=== PATIENT | male | born 1960 | race Caucasian/White ===

== ENCOUNTER → 2017-12-23 | Outpatient (CLI) | payer BC ==
--- NOTE | 2017-12-23 09:37 | CT ---
EXAMINATION TYPE: CT brain wo con DATE OF EXAM: 12/23/2017 COMPARISON: NONE HISTORY: Patient complains of chronic headaches. CT DLP: 1141 mGycm Automated exposure control for dose reduction was used. Helical acquisition through the brain FINDINGS: There is no hemorrhage or hydrocephalus. Calvarium is intact. Paranasal sinuses and mastoid air cells as visualized are normal. Brain density is remarkable for some periventricular white matter low-atte nuation. There is cortical atrophy. IMPRESSION: NO ACUTE ABNORMALITY. FINDINGS SUGGEST AGE-RELATED ATROPHY AND POSSIBLE CHRONIC SMALL VESSEL ISCHEMIA , BRAIN MRI MAY BE OF BENEFIT.
== END | disposition home or self-care (01) ==
LOC: RADCTMAIN 07:59
PROVIDERS: ATTEND Family Medicine
DX: G44.89 Other headache syndrome (principal)
CPT/HCPCS: 70450

== ENCOUNTER → 2020-03-20 | Outpatient (CLI) | payer BC ==
--- NOTE | 2020-03-20 10:40 | CT ---
EXAMINATION TYPE: CT abdomen pelvis wo con DATE OF EXAM: 03/20/2020 COMPARISON: 08/06/2015 HISTORY: Left sided flank pain. CT DLP: 1193.4 mGycm Examination of the solid and hollow viscera is limited given the lack of contrast. FINDINGS: LUNG BASES: No evidence for nodule. No evidence for infiltrate. LIVER/GB: Mild fatty liver. There is evidence of cholelithiasis. Hepatic cyst noted unchanged from pr ior study. No space-occupying hepatic lesion. PANCREAS: No pancreatic mass identified. No inflammatory process seen. SPLEEN: No evidence for splenomegaly. No intrasplenic lesions seen. ADRENALS: No adrenal nodules identified. No evidence for thickening. KIDNEYS: There is a distal right ureteral bilobed calculus or 2 adjacent calculi noted measuring tota l craniocaudal measurement of 2.3 cm with greatest transverse measurement of 9 mm. The calcifications reside 2.8 cm from the right UVJ. There is severe right-sided hydroureteronephrosis. 2 mm nonobstruc ting left renal calculus identified. BOWEL: Appendix has a normal appearance. No evidence of bowel obstruction. No inflammatory process. Lymph nodes: No evidence for adenopathy greater than 1 cm. Abdominal aorta: Atheromatous changes seen. No evidence for aneurysm. Genital organs: No significant abnormality. Other: No significant abnormality. IMPRESSION: There is a distal right ureteral bilobed calculus or 2 adjacent calculi noted measuring total cranioc audal measurement of 2.3 cm with greatest transverse measurement of 9 mm. The calcifications reside 2 .8 cm from the right UVJ. There is severe right-sided hydroureteronephrosis.
== END | disposition home or self-care (01) ==
LOC: RADCTMAIN 10:00
PROVIDERS: ATTEND Family Medicine
DX: R10.9 Unspecified abdominal pain (principal); N13.2 Hydronephrosis with renal and ureteral calculous obstruction
CPT/HCPCS: 74176

== ENCOUNTER → 2021-02-19 | Outpatient (CLI) | payer BC ==
--- NOTE | 2021-02-19 16:01 | CT ---
EXAMINATION TYPE: CT abdomen pelvis wo con DATE OF EXAM: 02/19/2021 COMPARISON: 03/20/2020 HISTORY: renal stone, bilateral flank pain CT DLP: 1083 mGycm Examination of the solid and hollow viscera is limited given the lack of contrast. FINDINGS: LUNG BASES: No evidence for nodule. No evidence for infiltrate. LIVER/GB: Hepatic steatosis. Cholelithiasis noted. Cystic lesion near the dome of the liver measuring 2.5 cm. No space-occupying hepatic lesion. PANCREAS: No pancreatic mass identified. No inflammatory process seen. SPLEEN: No evidence for splenomegaly. Splenic lesion is nonspecific measuring 1.9 cm and may reflect a cyst or hemangioma. ADRENALS: No adrenal nodules identified. No evidence for thickening. KIDNEYS: There is a large calculus within the prostatic urethra measuring approximately 9.5 mm in tra nsverse dimension and is felt to reflect a calculus of similar size seen on prior examination within the distal right ureter. 4 mm calculus distal right ureter without evidence for hydronephrosis. No re nal calculi seen. BOWEL: Appendix has a normal appearance. No evidence of bowel obstruction. No inflammatory process. Lymph nodes: No evidence for adenopathy greater than 1 cm. Abdominal aorta: Atheromatous changes seen. No evidence for aneurysm. Genital organs: No significant abnormality. Other: No significant abnormality. IMPRESSION: 1.There is a large calculus within the prostatic urethra measuring approximately 9.5 mm in transverse dimension and is felt to reflect a calculus of similar size seen on prior examination within the dis eli right ureter. 2. Nonobstructing 4 mm calculus distal right ureter.
== END | disposition home or self-care (01) ==
LOC: RADCTMAIN 15:23
PROVIDERS: ATTEND Urology
DX: N20.1 Calculus of ureter (principal)
CPT/HCPCS: 74176

== ENCOUNTER 2021-02-23 13:51 | Day surgery (SDC) | payer BC ==
[2021-02-20 08:47] VITALS: BMI 29.2
--- NOTE | 2021-02-22 13:35 | P.GSHP ---
History of Present Illness H&P Date: 02/22/21 Chief Complaint: Difficulty voiding, penile pain The patient is a 60-year-old male with a history of urolithiasis. A CT scan in February 2020 showed severe right hydronephrosis secondary to a 9 x 28 mm right distal ureteral calculus. The calculus appeared to have a dumbbell shape, though it may have been 2 calculi immediately adjacent to one another. He now presents with mild left flank discomfort, penile and prostatic pain, and difficulty voiding. CT scan shows a 4 mm right distal ureteral calculus, with no evidence of residual hydronephrosis. Additionally, a 9.5 cm calculus is seen within the prostatic urethra. - Constitutional Constitutional: Denies chills, Denies fever - Gastrointestinal Gastrointestinal: Denies nausea, Denies vomiting - Genitourinary (Male) Genitourinary: Reports as per HPI, Denies hematuria Past Medical History Past Medical History: Cancer, GERD/Reflux, Hypertension Additional Past Medical History / Comment(s): rt kidney stones,hx heart palpatations,borderline Neves's esophagitis,steroid injections kera knees January 12, 2021,skin CA-Kyler's procedures in office History of Any Multi-Drug Resistant Organisms: None Reported Additional Past Surgical History / Comment(s): partial rt testicle removed,colonoscopies Past Anesthesia/Blood Transfusion Reactions: No Reported Reaction Smoking Status: Current every day smoker - Past Family History Mother Family Medical History: Cancer Additional Family Medical History / Comment(s): brain Sister(s) Family Medical History: Cancer Additional Family Medical History / Comment(s): breast Father Family Medical History: Coronary Artery Disease (CAD) Additional Family Medical History / Comment(s): heart problems Medications and Allergies Home Medications Medication Instructions Recorded Confirmed Type Cyclobenzaprine [Flexeril] 10 mg PO TID PRN 02/20/21 02/20/21 History Ibuprofen [Motrin] 600 mg PO Q6HR PRN 02/20/21 02/20/21 History Krill Oil 500 mg PO HS 02/20/21 02/20/21 History Omeprazole 40 mg PO HS 02/20/21 02/20/21 History Tamsulosin HCl [Flomax] 0.4 mg PO HS 02/20/21 02/20/21 History Venlafaxine HCl ER [Effexor Xr] 150 mg PO QAM 02/20/21 02/20/21 History atenoloL [Atenolol] 100 mg PO QAM 02/20/21 02/20/21 History hydroCHLOROthiazide 25 mg PO QAM 02/20/21 02/20/21 History Allergies Allergy/AdvReac Type Severity Reaction Status Date / Time No Known Allergies Allergy Verified 02/20/21 08:33 Surgical - Exam - General well developed, well nourished, no distress - Neck no masses, trachea midline - Respiratory normal respiratory effort, clear to auscultation - Cardiovascular Rhythm: regular Abnormal Heart Sounds: no systolic murmur, no diastolic murmur, no rub, no S3 Gallop, no S4 Gallop, no click, no other - Abdomen Abdomen: soft, non tender, no guarding, no rigid, no rebound - Genitourinary normal penis with no external lesions right: testicle absent - Rectum Rectum: normal sphincter tone, no masses - Psychiatric oriented to time, oriented to person, oriented to place, speech is normal, memory intact Results - Imaging CT scan - abdomen: report reviewed, image reviewed Assessment and Plan (1) Calculus in urethra Status: Acute Code(s): N21.1 - CALCULUS IN URETHRA SNOMED Code(s): 78422639 (2) Calculus of ureter Status: Acute Code(s): N20.1 - CALCULUS OF URETER SNOMED Code(s): 51164698 Plan: Cystoscopy, cystolithotripsy, right retrograde pyelogram, right ureteroscopy with Holmium laser lithotripsy, right ureteral stent insertion. The procedure has been reviewed in detail with the patient and his . The rationale for the procedure was discussed, as were potential risks. These include anesthesia, bleeding, infection, inability to successfully remove the calculi, and ureteral injury. He is aware that a ureteral stent will be placed and left in place 1-2 weeks postoperatively.
[~2021-02-23 13:51] MED LIST: DEXAMETHASONE SOD PHOSPHATE 4 MG/ML 1 ML VIAL IV ONE; HYDROmorphone 0.5 MG/0.5 ML SYRINGE IVP PRN; LACTATED RINGERS 1,000 ML IV SCH; LIDOCAINE 1% (10MG/ML) FOR IV START INTRADERMA PRN; ONDANSETRON 4 MG/2 ML VIAL IVP ONE; SCOPOLAMINE 1.5MG/72HR PATCH TRANSDERM ONE
[2021-02-23 14:31] VITALS: RESP 16
[2021-02-23 14:52] LABS: Basophils # (A) 0.1 k/uL (0-0.2); Basophils % (A) 1 %; Eosinophils # (A) 0.3 k/uL (0-0.7); Eosinophils % (A) 3 %; HCT 46.3 % (39.0-53.0); HGB 16.7 gm/dL (13.0-17.5); Lymphocytes # (A) 2.4 k/uL (1.0-4.8); Lymphocytes % (A) 25 %; MCH 31.1 pg (25.0-35.0); MCHC 36.1 g/dL (31.0-37.0); MCV 86.3 fL (80.0-100.0); Mean Platelet Volume 6.6; Monocytes # (A) 0.6 k/uL (0-1.0); Monocytes % (A) 6 %; Neutrophils % (A) 63 %; Platelet Count 275 k/uL (150-450); RBC 5.37 m/uL (4.30-5.90); WBC 9.4 k/uL (3.8-10.6)
[2021-02-23 15:02] LABS: Calcium 9.6 mg/dL (8.4-10.2); Potassium 3.7 mmol/L (3.5-5.1)
[2021-02-23] MEDS ORDERED: ePHEDrine SULFATE/0.9% NACL/PF 50 MG/5 ML SYRINGE IV ONE (16:45)
[2021-02-23] MEDS ORDERED: ROCURONIUM 10 MG/ML (5 ML VIAL) IV ONE (16:45)
[2021-02-23] MEDS ORDERED: MIDAZOLAM 2 MG/2 ML VIAL ONE (16:45)
[2021-02-23] MEDS ORDERED: LIDOCAINE 1% INJ 10MG/ML (20 ML MDV) ONE (16:45)
[2021-02-23] MEDS ORDERED: NEOSTIGMINE 1 MG/ML 10 ML VIAL ONE (16:45)
[2021-02-23] MEDS ORDERED: PROPOFOL 10 MG/ML 20 ML VIAL IV ONE (16:45)
[2021-02-23] MEDS ORDERED: GLYCOPYRROLATE 0.2 MG/ML 2 ML VIAL ONE (16:45)
[2021-02-23] MEDS ORDERED: KETOROLAC 15 MG/ML 1 ML VIAL ONE (16:45)
[2021-02-23] MEDS ORDERED: SUCCINYLCHOLINE CHLORIDE 100 MG/5 ML SYR IV ONE (16:45)
[2021-02-23] MEDS ORDERED: fentaNYL (PF) 50 MCG/ML 2 ML AMP ONE (16:45)
[2021-02-23] MEDS ORDERED: LACTATED RINGERS 1,000 ML IV ONE (17:45)
[2021-02-23 18:52] VITALS: TEMP 96.8
--- NOTE | 2021-02-23 18:52 | P.OP ---
Date of Procedure: 02/23/21 Preoperative Diagnosis: Bladder calculus, right ureteral calculus Postoperative Diagnosis: Same Procedure(s) Performed: Cystoscopy, cystolithotripsy, right ureteroscopy with Holmium laser lithotripsy and stone basketing, right ureteral stent insertion Anesthesia: MIAN Surgeon: Riccardo Berry Estimated Blood Loss (ml): 10 IV fluids (ml): 500 Pathology: other (Calculus fragments, sent for chemical analysis) Condition: stable Disposition: PACU Indications for Procedure: The patient is a 60-year-old male with a history of urolithiasis. A CT scan in February 2020 showed severe right hydronephrosis secondary to a 9 x 28 mm right distal ureteral calculus. The calculus appeared to have a dumbbell shape, though it may have been 2 calculi immediately adjacent to one another. He now presents with mild left flank discomfort, penile and prostatic pain, and dif ficulty voiding. CT scan shows a 4 mm right distal ureteral calculus, with no evidence of residual hydronephrosis. Additionally, a 9.5 cm calculus is seen within the prostatic urethra. Operative Findings: Bladder calculus, right distal ureteral calculus. Both fragmented and removed completely. Description of Procedure: The patient was taken to the operating room and placed in the dorsolithotomy position, with legs supported in Johny stirrups. The external genitalia was prepped and draped sterilely. The 30 lens was used to introduce the 21-Wallisian Ricardo cystoscopic sheath through the urethra. The bulbous urethra was somewhat narrowed in caliber, and therefore [place] sounds were used to dilate the urethra and allow the cystoscope to be advanced into the bladder under direct vision. The prostatic urethra showed evidence of mild lateral lobe enlargement. The bladder was examined in its entirety. Both ureteral orifices were normal anatomic location and configuration, and clear urine effluxed from both. A calculus was seen within the bladder, measuring approximately 1.5 cm in size. The 1000 holmium laser probe was passed through the cystoscope, and lithotripsy was performed. After fragmenting the calculus, all calculus fragments were removed from the bladder through the cystoscope. There was no evidence of bladder trauma. The cystoscope was removed. The Ricardo semirigid ureteroscope was advanced into the bladder, and the right ureteral orifice was cannulated. the ureteroscope was advanced up to the calculus. The 272 micron Holmium laser probe was passed through the ureteroscope, and lithotripsy was performed utilizing a dusting mode with virtual basket. After fragmenting much of the calculus, it was apparent that it was impacted and that a portion of the calculus was adherent to the ureteral mucosa. This was gently pried away from the mucosa prior to fragmenting. After much of the calculus had been fragmented, a portion of the calculus refluxed above the iliac vessels. The semirigid ureteroscope could not be advanced beyond this point. A 1.9-Wallisian nitinol basket was used to remove calculus fragments from the distal ureter. A 0.035 inch Glidewire was passed through the ureteroscope, which was removed. The [employer] flexible ureteroscope was passed over the wire, but could not be passed through the right ureteral orifice. Therefore, an 11/13-Wallisian ureteral access catheter was passed over the wire, thus dilating the ureteral orifice. It was then possible to pass the flexible ureteroscope over the wire, up to the calculus. Slight narrowing of the ureter was noted where the stone had been impacted, so the Glidewire was passed through the ureteroscope which was gently advanced over the wire. The ureteroscope was then advanced under direct vision up to the kidney. Each calyx was examined. No calculi were seen within the calyces or the renal pelvis. The flexible ureteroscope was slowly withdrawn. The calculus fragment was seen within the mid ureter, and this was removed via Stone basketing. Pullout ureteroscopy was then performed, showing no residual ureteral calculi and no evidence of ureteral perforation. The ureteroscope was removed, and the cystoscope was replaced into the bladder. The Glidewire was passed up to the right renal pelvis, and a 28 cm, 6-Wallisian double-J ureteral stent was placed over the wire. Proper stent positioning was verified fluoroscopically and endoscopically. The bladder was emptied and the cystoscope removed. The patient tolerated the procedure well and was taken to the recovery room in stable condition. [employer] Report: Procedure Acuity: Semi-Urgent Stone Size and Location: 1.5 cm bladder calculus, 7 mm right distal ureteral calculus. Ureteral Dilation: No Ureteral Access Sheath Used: Yes Stone Sent for Analysis: Yes All Stones/Fragments Were Removed with a Basket: Yes Complications: No Preoperative Antibiotics Given: Yes Stent Placed: Yes If Stent Placed, Was String Left Attached: No If Stent Placed, When is it to be Removed: 2 weeks Discharge Medications: Toradol, tamsulosin
[2021-02-23 19:27] VITALS: BP 148/86; PULSE 56
--- NOTE | 2021-02-24 08:06 | FL ---
EXAMINATION TYPE: FL guidance operating room DATE OF EXAM: 02/23/2021 HISTORY: Fluoroscopy time 24 seconds of fluoroscopy provided. IMPRESSION: 1. Fluoroscopy time.
--- NOTE | 2021-02-24 08:39 | XR ---
EXAMINATION TYPE: XR KUB DATE OF EXAM: 02/23/2021 2:05 PM CLINICAL HISTORY: History of right-sided kidney stones. TECHNIQUE: Two supine KUB images of the abdomen are obtained. COMPARISON: CT abdomen and pelvis 4 days ago. FINDINGS: Stable roughly 8 mm distal right ureter calculus projecting over the lateral aspect of the right mid sacrum. There is prostate calcification projecting over the right aspect of coccyx. There a re left-sided pelvic phleboliths. Overall nonobstructive bowel gas pattern. Visualized lung bases are clear. IMPRESSION: Stable 8 mm distal right ureter calculus.
== END 2021-02-23 19:42 | disposition home or self-care (01) ==
LOC: OR 13:51
PROVIDERS: ATTEND Urology
DX: N13.2 Hydronephrosis with renal and ureteral calculous obstruction (principal); N21.0 Calculus in bladder; K21.9 Gastro-esophageal reflux disease without esophagitis; I10 Essential (primary) hypertension; Z87.442 Personal history of urinary calculi; K22.70 Barrett's esophagus without dysplasia; Z85.828 Personal history of other malignant neoplasm of skin; Z80.8 Family history of malignant neoplasm of other organs or systems; Z80.3 Family history of malignant neoplasm of breast; Z82.49 Family history of ischemic heart disease and other diseases of the circulatory system; Z79.899 Other long term (current) drug therapy; Z87.891 Personal history of nicotine dependence
CPT/HCPCS: 80048; 85025; 82365; 74018; 52356; C2625; C1758; C1769; J2250; J1100; J2710; J0690; J2405; J2001; J3010; J1885; J0330; J2704

== ENCOUNTER → 2021-04-24 | Outpatient (CLI) | payer BC ==
--- NOTE | 2021-04-24 10:06 | US ---
EXAMINATION TYPE: US kidneys/renal and bladder DATE OF EXAM: 04/24/2021 COMPARISON: CT 02/19/2021, 03/20/2020, 08/06/2015 CLINICAL HISTORY: N20.1 Calculus of ureter. EXAM MEASUREMENTS: Right Kidney: 11.6 x 5.3 x 6.7 cm Left Kidney: 12.1 x 5.6 x 6.3 cm Right Kidney: minimal hydronephrosis noted lower pole. Left Kidney: Hypoechoic/anechoic lower/lateral measures 2.7 x 2.5 x 2.5 cm Bladder: wnl Bilateral Jets seen: No There is no evidence for hydronephrosis at this point in time. No nephrolithiasis is seen. No polly s are identified. The urinary bladder is anechoic. IMPRESSION: Left renal anechoic lesion most likely represents a cyst. Further evaluation with MRI abdomen with an d without contrast could be performed if necessary otherwise, ultrasound follow-up is recommended.
== END | disposition home or self-care (01) ==
LOC: RADUSWWP 09:39
PROVIDERS: ATTEND Urology
DX: N13.2 Hydronephrosis with renal and ureteral calculous obstruction (principal)
CPT/HCPCS: 76770

== ENCOUNTER → 2024-08-10 | Outpatient (CLI) | payer BC ==
--- NOTE | 2024-08-10 09:11 | XR ---
EXAMINATION TYPE: XR chest 2V DATE OF EXAM: 08/10/2024 COMPARISON: None HISTORY: 63-year-old male D41.02 NEOPLASM OF UNCERTAIN BEHAVIOR OF LEFT KIDN TECHNIQUE: Frontal and lateral views FINDINGS: The cardiomediastinal silhouette, aorta, and pulmonary vasculature are within normal limits. Some str ingy atelectasis in the lower lungs. Otherwise, lungs and pleural spaces are clear. DISH in the mid t horacic spine. IMPRESSION: No acute cardiopulmonary process. [facility], , 08/10/2024 9:09 AM
== END | disposition home or self-care (01) ==
LOC: RADXRMAIN 08:35
PROVIDERS: ATTEND Urology
DX: D41.02 Neoplasm of uncertain behavior of left kidney (principal)
CPT/HCPCS: 71046

== ENCOUNTER → 2024-08-30 | Outpatient (CLI) | payer BC ==
[2024-08-30 15:40] LABS: Basophils # (A) 0.09 X 10*3/uL (0.00-0.10); Basophils % (A) 1.3 %; Eosinophils # (A) 0.45 X 10*3/uL (0.04-0.35); Eosinophils % (A) 6.4 %; HCT 45.4 % (39.6-50.0); Lymphocytes # (A) 2.26 X 10*3/uL (0.90-5.00); MCH 28.1 pg (27.0-32.0); Mean Platelet Volume 9.5 FL (9.5-12.2); Monocytes # (A) 0.56 X 10*3/uL (0.20-1.00); Monocytes % (A) 7.9 %; NRBC Per 100 WBC 0 X 10*3/uL (0.00-0.01); Neutrophils # (A) 3.69 X 10*3/uL (1.80-7.70); Neutrophils % (A) 52.3 %; Platelet Count 200 X 10*3/uL (140-440); RBC 5.34 X 10*6/uL (4.40-5.60); RDW 13.3 % (11.5-14.5); WBC 7.06 X 10*3/uL (4.50-10.00)
[2024-08-30 15:57] LABS: ALT 14 U/L (10-49); AST 16 U/L (14-35); Albumin 4.3 g/dL (3.8-4.9); Albumin/Globulin Ratio 1.79 Ratio (1.60-3.17); Alkaline Phosphatase 79 U/L (41-126); Blood Urea Nitrogen 12.3 mg/dL (9.0-27.0); Calcium 9.5 mg/dL (8.7-10.3); Carbon Dioxide 25.8 mmol/L (21.6-31.8); Chloride 103 mmol/L (96-109); Globulin 2.4 g/dL (1.6-3.3); Glucose 104 mg/dL (70-110); Potassium 5.1 mmol/L (3.5-5.5); Sodium 139 mmol/L (135-145); Total Bilirubin 0.6 mg/dL (0.3-1.2); Total Protein 6.7 g/dL (6.2-8.2)
[2024-08-30 16:14] LABS: INR 0.95 sec (0.93-1.11); Prothrombin Time 10.3 sec (9.9-11.9)
[2024-08-30 17:38] LABS: Appearance,Urine Clear (Clear); Bilirubin,Urine Negative (Negative); Blood,Urine Negative (Negative); Color,Urine Yellow (Yellow); Ketones,Urine Negative (Negative); Nitrite,Urine Negative (Negative); Specific Gravity,Urine 1.017 (1.001-1.030); Urobilinogen,Urine 0.2 E.U./DL
== END | disposition home or self-care (01) ==
LOC: LABWHC1 10:05
PROVIDERS: ATTEND Radiology Diagnostic Radiology
DX: N28.89 Other specified disorders of kidney and ureter (principal)
CPT/HCPCS: 36415; 80053; 81003; 85025; 85610

== ENCOUNTER → 2025-03-08 | Outpatient (CLI) | payer BC ==
[2025-03-08 15:07] LABS: African American GFR (CKD) 78 (>60 ml/min/1.73 sqM); Blood Urea Nitrogen 17 mg/dL (9-20); Non-African American GFR(CKD) 67 (>60 ml/min/1.73 sqM)
--- NOTE | 2025-03-09 09:44 | CT ---
EXAMINATION TYPE: CT abdomen wo/w con DATE OF EXAM: 03/08/2025 4:53 PM COMPARISON: 12/07/2024 CLINICAL INDICATION: Male, 64 years old with history of C64.9 RENAL CANCER; F/O ON LESION REMOVED ON LEFT KIDNEY TECHNIQUE: Axial CT abdomen wo/w con;Sagittal and coronal reformats were created on a separate works tation. Contrast used:100ml mL of Isovue 300 without and with IV Contrast, (none if empty) Oral contrast used: with Oral Contrast (none if empty) CT DLP: 1531.20 mGycm, Automated exposure control for dose reduction was used. FINDINGS: LOWER CHEST: Unremarkable ABDOMEN LIVER: Probable 15 mm cyst near the dome of the liver in the segment 4A.r GALLBLADDER AND BILE DUCTS: Layering increased densities within the lumen consistent with gallstones are present. PANCREAS: Unremarkable. SPLEEN: Splenic cyst measuring 25 mm and 23 Hounsfield units. ADRENAL GLANDS: Unremarkable. KIDNEYS AND URETERS: No evidence of hydronephrosis or obstructing renal calculus. The ureters are unr emarkable. Nonobstructing calculi measuring up to 5 mm on the right and 2 mm on the left. Stable l eft renal cortical postsurgical changes with cyst measuring up to 20 mm. No new or enlarging soft tis monica. STOMACH AND BOWEL: . Scattered diverticula are noted throughout the colon. No evidence of bowel obstr uction. Appendix is elongated and filled with feces and otherwise grossly unremarkable. PERITONEUM/RETROPERITONEUM: No evidence of pneumoperitoneum or free fluid. VASCULATURE: No evidence of aortic aneurysm. MUSCULOSKELETAL: No acute osseous abnormalities. Mild disc degeneration changes are present throughou t the thoracolumbar spine. LYMPH NODES: No gross evidence for lymphadenopathy. SOFT TISSUE/ABDOMINAL WALL: Unremarkable IMPRESSION: 1. Stable postsurgical changes of the left kidney. No new or enlarging mass. No lymphadenopathy. 2. Nonobstructing bilateral calculi. 3. Cholelithiasis. 4. Stable splenic probable cyst. 5. Colonic diverticulosis [facility], , 03/09/2025 9:41 AM
== END | disposition home or self-care (01) ==
LOC: RADCTMAIN 14:14
PROVIDERS: ATTEND Radiology Diagnostic Radiology
DX: C64.9 Malignant neoplasm of unspecified kidney, except renal pelvis (principal); K80.20 Calculus of gallbladder without cholecystitis without obstruction; N20.0 Calculus of kidney; K57.30 Diverticulosis of large intestine without perforation or abscess without bleeding; Z98.890 Other specified postprocedural states
CPT/HCPCS: 82565; 84520; 74170; 36415; Q9967